=== PATIENT | female | born 1950 | race Caucasian/White ===

== ENCOUNTER 2018-12-29 16:46 | Inpatient (IN) | payer MEDICARE, BC ==
[~2018-12-29] VITALS: Ht 149.9 cm; Wt 57.9 kg
--- NOTE | ~2018-12-29 | DS ---
PATIENT:AYO OKEEFE :48 MEDICAL RECORD: [id number] DISCHARGE SUMMARY ADMISSION DATE: 12/29/18 DISCHARGE DATE: 12/30/18 IDENTIFYING DATA: The patient is 68 years old and she was admitted to the hospital on a voluntary basis because of depression. The patient presented to the Emergency Room at [facility] and endorsed some suicidal thoughts. She immediately began backpedaling upon that after arriving here and indeed when I interviewed her, she indicated that she was not suicidal, has never been suicidal, but has a lot of depressive symptoms. HOSPITAL COURSE: The patient was admitted on an emergency basis from the Emergency Room in the evening. The following day, when I examined her, she had depressive symptoms, but no thoughts of self-harm and the explanation as to the misunderstanding was credible in my account. She did not want to be treated on an inpatient basis and was wanting to be discharged. My assessment of her led to the conclusion that she had no symptoms that would mandate an involuntary hospitalization and she was subsequently discharged. I did start her on a low dose of Zoloft. DISCHARGE DIAGNOSES: AXIS I: Major depression, moderate severity without psychotic features. AXIS II: None. AXIS III: Hypercholesterolemia. AXIS IV: Moderate stressors. AXIS V: Global assessment of functioning is 55. PLAN: At the time of discharge, the patient was not acutely or directly dangerous. She had a depressed mood, but again was not displaying symptoms that make her a direct or eminent risk. She will be followed on an outpatient basis by her primary care physician and she has declined outpatient psychiatric followup. I think her prognosis is guarded and will be largely contingent upon her taking the antidepressant medication and following up with her primary care doctor. TRANSINT:[id number] Voice Confirmation ID: [id number] DOCUMENT ID: [id number] MEGHAN WING MD CC: [id number] DICTATION DATE: 12/31/18 1455 TELEPHONE SERVICE REPRESENTATIVE: 01/01/19 0042 DIS IN 12/30/18 [id number] [place] [address]
[~2018-12-29 16:46] MED LIST: ACIPHEX20 MG PO; ASPIRIN 81 MG E81 MG PO; PREMARIN0.3 MG PO; RESTORIL15 MG PO; ZOCOR10 MG PO; ZYDONE PO
[2018-12-29 23:03] VITALS: BP 155/48; BMI 25.8
--- NOTE | 2018-12-30 02:51 | NUR ---
NEW ADMIT TO DR. WING FROM [facility] ER RT SUICIDAL IDEATIONS RECIEVED VIA EMS. PT WITH DAUGHTER WAS CALM AND COOPERATIVE UPON ARRIVAL. DAUGHTER TOOK VALUABLES HOME. CODE STATUS FULL CODE RECEIVED, SECURITY CODE CEZAR WAS RECIEVED. PT DENIES CURRENT SI. STATING THAT SHE TOLD STAFF AT [facility] THAT HER SI WAS IN THE VERY DISTANT PAST. SHE ORIGINALLY CAME TO DISCUSS MEDICATION EFFECTS AT [facility]. PT REQUEST OUTPATIENT VISITS WITH PSYCHIATRIST TO TREAT DEPRESSIVE EPISODES.
[2018-12-30 07:00] VITALS: BP 120/42
[2018-12-30 07:11] LABS: EOSINOPHILS 1.8 % (0-7); HEMATOCRIT 41.3 % (36.0-48.0); HEMOGLOBIN 13.5 g/dL (12-16); IMMATURE GRANULOCYTES 0.1 % (0-5); LYMPHOCYTES 20.3 % (15-50); MCH 30.5 pg (26.0-34.0); MCHC 32.7 g/dL (31.0-37.0); MCV 93.2 fL (80.0-100.0); MEAN PLATELET VOLUME 9.9 fL (7.4-10.4); MONOCYTES 5.4 % (2-11); NEUTROPHILS 71.4 % (40-80); RBC 4.43 10x6/uL (4.00-5.40)
[2018-12-30 07:24] LABS: PLATELET COUNT 275 10x3/uL (130-400)
--- NOTE | 2018-12-30 07:30 | NUR ---
REC'D PT IN [facility]IAL[facility]ING WITH PEERS. LINNEA CHEUNG COOPERATIVE WITH ASSESSMENT. MED COMPLIANT. PT IS ALERT AND ORIENTED X 4. PT DENIES SI AT THIS TIME. PT REPORTS " IT WAS A BIG MESS, I AM NOT SUICIDAL." WILL CPOC.
[2018-12-30 08:00] LABS: ALBUMIN 3.9 g/dL (3.4-5.0); ALKALINE PHOSPHATASE 74 U/L (46-116); ALT (SGPT) 23 U/L (10-68); BILIRUBIN - TOTAL 0.71 mg/dL (0.2-1.3); CALC OSMOLALITY 276 mosm/kg (275-300); CALCIUM 8.9 mg/dL (8.5-10.1); CARBON DIOXIDE 30.9 mmol/L (21.0-32.0); CHLORIDE - SERUM 101 mmol/L (98-107); CHOL - HDL RATIO 1.8 ratio (2.3-4.1); CHOLESTEROL, TOTAL 184 mg/dL (0-200); CREATININE - SERUM 0.8 mg/dL (0.6-1.3); GLUCOSE 140 mg/dL (74-106); HDL CHOLESTEROL 102 mg/dL (32-96); LDL CHOLESTEROL 74 mg/dL (0-100); LDL-HDL RATIO 0.7 ratio (1.5-3.5); POTASSIUM - SERUM 3.8 mmol/L (3.5-5.1); PROTEIN - SERUM 6.9 g/dL (6.4-8.2); SODIUM 139 mmol/L (136-145); THYROID STIMULATING HORMONE 3.14 uIU/mL (0.36-3.74); TRIGLYCERIDE 43 mg/dL (30-200); UREA NITROGEN 5 mg/dL (7-18); eGFR NON AFRICAN AMERICAN 75 mL/min (90-120)
[2018-12-30 12:03] VITALS: BMI 25.8
[2018-12-30 13:19] VITALS: Ht 149.9 cm; Wt 57.9 kg
[2018-12-30] MEDS ORDERED: ZOLOFT50 MG PO (15:59)
--- NOTE | 2018-12-30 18:00 | NUR ---
PT DISCHARGED HOME WITH DAUGHTER. NO S/SX OF DISTRESS NOTED. NO C/O PAIN OR DISCOMFORT VOICED OR NOTED. ALL PAPERWORK SENT WITH PT.
[2018-12-31 06:09] LABS: RAPID PLASMA REAGIN Non Reactive (Non Reactive)
--- NOTE | 2018-12-31 14:50 | PSY ---
PATIENT NAME:AYO OKEEFE MEDICAL RECORD: [id number] : 48 LOCATION:[id number] ADMISSION DATE: 12/29/18 ACCOUNT: [id number] PSYCHIATRIC EVALUATION DATE OF EVALUATION: 12/30/18 PSYCHIATRIC EVALUATION IDENTIFYING DATA: The patient is 68 years old and she is admitted to the hospital on a voluntary basis. CHIEF COMPLAINT: Depression. HISTORY OF PRESENT ILLNESS: The patient presented to the Emergency Room at [facility] and was endorsing suicidal thoughts. She says now that she was upset and just frustrated and really did not mean what she said. She is originally from [place]; and although she speaks [place] well, she is soft spoken and has a pretty strong accent. She denies that she would want to hurt herself and says that she has never attempted to harm herself in any way. She has a number of depressive symptoms and she largely relates this to the stress of taking care of her who is 80 years old; not in good health; and is not abusive but angry, verbally disrespectful, and demanding. She also has stress related to her extended family in [place] [facility] [place] and worried about their safety and wellbeing. PAST MEDICAL HISTORY: Significant for hypercholesterolemia, hysterectomy, and bowel obstruction. She says she has pain in her hands, although they are not misshaped in a way consistent with arthritis and she says her primary care doctor in [place] prescribed her 40 mg a day of hydrocodone and had done so for years. He recently stopped doing that and transferred her to his buprenorphine clinic at [facility]. She says she took the medicine 2 days, did not like it, and has subsequently stopped taking it. It has been several weeks since she has had a narcotic and she no longer has any of the withdrawal symptoms. SOCIAL HISTORY: The patient is . She has an adult daughter and 2 grandchildren who live in the [place]. She worked for the [employer] in [place] and is retired. MENTAL STATUS EXAMINATION: The patient is awake; alert; and oriented to person, place, time, and situation. Her mood is euthymic. Her affect is appropriate. Thought processes are goal directed. Memory, concentration, and abstraction abilities are intact. She denies any intent to harm herself or others as well as overt psychotic symptoms. ASSETS: Supportive family members. LIABILITIES: Limited insight. DIAGNOSTIC IMPRESSION: AXIS I: Major depression, moderate severity, without psychotic features. AXIS II: Deferred. AXIS III: Hypercholesterolemia. AXIS IV: Moderate stressors. AXIS V: Global assessment of functioning is 55. PLAN: At this time, the patient is going to be discharged from the hospital at her request. She has no evidence of acute or direct dangerousness and I think that the events in the Emergency Room were one-third misunderstanding between the two parties and two-thirds drama and hyperbole that resulted in her hospitalization here. I do not view her as acutely dangerous. She has been offered outpatient psychiatric care and refused. She wants to see her primary care physician. Follow up will be with him. TRANSINT:[id number] Voice Confirmation ID: [id number] DOCUMENT ID: [id number] MEGHAN WING MD at 1450 CC: [id number] DICTATION DATE: 12/30/18 1558 LEATHER CLEANER: 12/30/18 1620 DIS IN 12/30/18 [id number] [place] [address]
== END 2018-12-30 18:15 | disposition home or self-care (01) | DRG 881 ==
LOC: D.PSYCH 16:46
PROVIDERS: ADMIT Psychiatry & Neurology Psychiatry; ATTEND Psychiatry & Neurology Psychiatry
DX: F32.9 Major depressive disorder, single episode, unspecified (principal); E78.00 Pure hypercholesterolemia, unspecified